=== PATIENT | female | born 1940 | race Caucasian/White ===

== ENCOUNTER 2016-10-30 16:28 | Inpatient (IN) | payer OTHER, MEDICARE ==
--- NOTE | 2016-10-30 18:42 | EKG REPORT ---
SEVERITY:- ABNORMAL ECG - SINUS RHYTHM PROBABLE LEFT ATRIAL ABNORMALITY PROBABLE ANTEROSEPTAL INFARCT, AGE INDETERM : Confirmed by: Dilma Jeronimo MD 30-Oct-2016 18:41:51
[2016-10-30] MEDS ORDERED: LEVOFLOXACIN 500 MG/D5W RTU 100 ML IV ONE (18:48)
[2016-10-30] MEDS ORDERED: IPRATROPIUM/ALBUTEROL 0.5-2.5 MG/3 ML AMPUL NEB ONE ×2 (18:48→21:56)
[2016-10-30 18:50] LABS: VENOUS BLOOD BASE EXCESS 5.4 mmol/L; VENOUS BLOOD HCO3 34.1 mmol/L (20-32); VENOUS BLOOD PH 7.3 (7.30-7.42)
[2016-10-30 18:54] LABS: ABSOLUTE EOSINOPHILS # (AUTO) 0.2 10^3/uL (0.0-0.6); ABSOLUTE LYMPHOCYTES (AUTO) 0.4 10^3/uL (0.5-4.7); ABSOLUTE MONOCYTES (AUTO) 0.1 10^3/uL (0.1-1.4); ABSOLUTE NEUT (AUTO) 5.2 10^3/uL (1.7-8.2); BASOPHILS % (AUTO) 0.7 % (0-2); EOSINOPHILS % (AUTO) 3.8 % (0-6); HEMATOCRIT 38.8 % (36.0-47.0); HEMOGLOBIN 12.1 g/dL (12.0-15.5); HGB HCT DIFFERENCE -2.5; LYMPHOCYTES % (AUTO) 7.5 % (13-45); MEAN CORPUSCULAR HEMOGLOBIN 26.9 pg (27.0-33.4); MEAN CORPUSCULAR HGB CONC 31.1 g/dL (32.0-36.0); MEAN CORPUSCULAR VOLUME 86 fl (80-97); MONOCYTES % (AUTO) 1.6 % (3-13); RED CELL DISTRIBUTION WIDTH 15.3 % (11.5-14.0); SEGMENTED NEUTROPHILS % (AUTO) 86.4 % (42-78)
[2016-10-30 18:59] LABS: PROTHROMBIN TIME 12.8 SEC (11.4-15.4)
[2016-10-30 19:02] LABS: VENOUS BLOOD PCO2 70.5 mmHg (35-63)
[2016-10-30 19:08] LABS: ANION GAP 9 (5-19); BLOOD UREA NITROGEN 13 mg/dL (7-20); CARBON DIOXIDE 33 mmol/L (22-30); CHLORIDE 106 mmol/L (98-107); CREATININE RESULT 0.78 mg/dL (0.52-1.25); GLUCOSE 113 mg/dL (75-110); POTASSIUM 4.2 mmol/L (3.6-5.0); SODIUM 147.7 mmol/L (137-145)
[2016-10-30 19:09] LABS: ALANINE AMINOTRANSFERASE 39 U/L (9-52); ALBUMIN 3.9 g/dL (3.5-5.0); ALKALINE PHOSPHATASE 185 U/L (38-126); ASPARTATE AMINO TRANSFERASE 24 U/L (14-36); BILIRUBIN,TOTAL 0.5 mg/dL (0.2-1.3); CREATINE KINASE 61 U/L (30-135); LIPASE 46.8 U/L (23-300); TOTAL PROTEIN 6.7 g/dL (6.3-8.2)
[2016-10-30 19:20] LABS: CREATINE KINASE MB 1.46 ng/mL (<4.55)
[2016-10-30 19:22] LABS: TROPONIN I < 0.012 ng/mL
[2016-10-30] MEDS ORDERED: METHYLPREDNISOLONE INJ 125 MG/2 ML SDV IV ONE (20:23)
--- NOTE | 2016-10-30 21:49 | ER Document Report ---
ED General - General Chief Complaint: Shortness Of Breath Stated Complaint: DIFFICULTY BREATHING TRAVEL OUTSIDE OF THE [place] IN LAST 30 DAYS: No - HPI Patient complains to provider of: shortness of breath cough Notes: Patient was seen today the local [place] clinic and sent by EMS for further evaluation shortness of breath cough. Patient states history COPD patient states that she's been short of breath the last week patient is on home O2 normally wears approximately 2-3 L. Patient denies any pain denies fever states he does have chills denies any night sweats. Patient states cough was productive however now not producing any sputum. Denies any recent travel. EMS reported hypoxia upon their arrival - Related Data Allergies/Adverse Reactions: lisinopril Allergy (Verified 10/03/16 16:06) omeprazole Allergy (Verified 10/03/16 16:06) Penicillins Allergy (Verified 10/03/16 16:06) rash Sulfa (Sulfonamide Antibiotics) Allergy (Verified 10/03/16 16:06) rash sulfamethoxazole [From Bactrim] Allergy (Verified 10/03/16 16:06) trimethoprim [From Bactrim] Allergy (Verified 10/03/16 16:06) Home Medications: Current Home Medications Albuterol Sulfate [Proair HFA] 2 puff IH Q6HP PRN 10/30/16 [History] Albuterol Sulfate [Ventolin 0.083% Neb 2.5 mg/3 mL Ampul] 2.5 mg NEB RTQ6 [History] Allopurinol [Zyloprim 300 mg Tablet] 300 mg PO DAILY 10/30/16 [History] Budesonide/Formoterol Fumarate [Symbicort HFA 160-4.5 mcg Inhaler 6 gm] 2 puff IH Q12 10/30/16 [History] Diclofenac Sodium [Voltaren] 4 gm TOP Q6 10/30/16 [History] Furosemide [Lasix 40 mg Tablet] 40 mg PO DAILY 10/30/16 [History] Guaifenesin [Expectorant] 400 mg PO Q8 10/30/16 [History] Ibuprofen [Motrin 800 mg Tablet] 800 mg PO Q8HP PRN 10/30/16 [History] Levothyroxine Sodium [Synthroid 0.15 mg Tablet] 0.15 mg PO DAILY 10/30/16 [ History] Lidocaine HCl [Xylocaine 5% Ointment 35.44 gm] 1 applic TOP BIDP PRN 10/30/16 [ History] Losartan Potassium [Cozaar 50 mg Tablet] 25 mg PO DAILY 10/30/16 [History] Paroxetine HCl [Paxil] 40 mg PO DAILY 10/30/16 [History] Potassium Chloride [Klor-Con 10 Meq Tablet.sa] 20 meq PO Q12 10/30/16 [History] Past Medical History - Social History Smoking Status: Unknown if Ever Smoked Family History: Reviewed & Not Pertinent - Past Medical History Cardiac Medical History: Reports: Hx Congestive Heart Failure Pulmonary Medical History: Reports: Hx Bronchitis, Hx COPD, Hx Pneumonia Malignancy Medical History: Reports: Hx Breast Cancer Past Surgical History: Reports: Hx Cholecystectomy, Hx Mastectomy - bilateral - Immunizations Immunizations up to date: No Hx Diphtheria, Pertussis, Tetanus Vaccination: No Review of Systems - Review of Systems Constitutional: No symptoms reported EENT: No symptoms reported Cardiovascular: No symptoms reported Respiratory: Cough, Short of breath, Wheezing Gastrointestinal: No symptoms reported Genitourinary: No symptoms reported Female Genitourinary: No symptoms reported Musculoskeletal: No symptoms reported Skin: No symptoms reported Hematologic/Lymphatic: No symptoms reported Neurological/Psychological: No symptoms reported -: Yes All other systems reviewed and negative Physical Exam - Vital signs Vitals: Resp 18 10/30/16 16:38 - General General appearance: Appears well, Alert - HEENT Head: Normocephalic, Atraumatic Eyes: Normal Pupils: PERRL - Respiratory Respiratory status: No respiratory distress Chest status: Nontender Breath sounds: Rhonchi, Wheezing Chest palpation: Normal - Cardiovascular Rhythm: Regular Heart sounds: Normal auscultation Murmur: No - Abdominal Inspection: Normal Distension: No distension Bowel sounds: Normal Tenderness: Nontender Organomegaly: No organomegaly - Back Back: Normal, Nontender - Extremities General upper extremity: Normal inspection, Nontender, Normal color, Normal ROM , Normal temperature General lower extremity: Normal inspection, Nontender, Normal color, Normal ROM , Normal temperature, Normal weight bearing. No: Manav's sign - Neurological Neuro grossly intact: Yes Cognition: Normal Orientation: AAOx4 [place]ack[place] Coma Scale Eye Opening: Spontaneous [place] Coma Scale Verbal: Oriented [place] Coma Scale Motor: Obeys Commands Zackary Coma Scale Total: 15 Speech: Normal Motor strength normal: LUE, RUE, LLE, RLE Sensory: Normal - Psychological Associated symptoms: Normal affect, Normal mood - Skin Skin Temperature: Warm Skin Moisture: Dry Skin Color: Normal Course - Re-evaluation Re-evalutation: 10/30/16 22:31 Patient's lab work shows elevated PCO2 there is no acidosis the patient does have bilateral pneumonia. Patient also has a coarse wheezing bilateral lung lyle. Patient was placed on her home O2 discussed with hospitalist will place the patient on BiPAP. Antibiotics given. Patient will be admitted for further evaluation. - Vital Signs Vital signs: Temp Pulse Resp BP Pulse Ox 98.0 F 90 18 133/49 H 95 10/30/16 16:53 10/30/16 16:53 10/30/16 22:00 10/30/16 16:53 10/30/16 22:00 - Laboratory Result Diagrams: 10/30/16 18:37 10/30/16 18:37 Laboratory results interpreted by me: 10/30/16 10/30/16 10/30/16 18:37 18:37 18:37 MCH 26.9 L MCHC 31.1 L RDW 15.3 H Seg Neutrophils % 86.4 H Lymphocytes % 7.5 L Monocytes % 1.6 L Absolute Lymphocytes 0.4 L VBG pCO2 70.5 H* VBG HCO3 34.1 H Sodium 147.7 H Carbon Dioxide 33 H Glucose 113 H Alkaline Phosphatase 185 H Critical Care Note - Critical Care Note Total time excluding time spent on procedures (mins): 35 Comments: Multiple evaluations for patient with abnormal vital signs/laboratory values. Requiring BiPAP Discharge - Discharge Clinical Impression: COPD exacerbation, Hypercarbia Bilateral pneumonia Qualifiers: Pneumonia type: due to unspecified organism Lung location: unspecified part of lung Qualified Code(s): J18.9 - Pneumonia, unspecified organism Condition: Fair Disposition: ADMITTED INPATIENT Admitting Provider: [facility] Unit Admitted: [facility]
[2016-10-31] MEDS ORDERED: GUAIFENESIN SYRP 200 MG/10 ML UDC PO PRN (00:39)
[2016-10-31] MEDS ORDERED: ALBUTEROL SULFATE 0.083% NEB 2.5 MG/3 ML AMPUL NEB PRN (00:39)
[2016-10-31] MEDS ORDERED: ACETAMINOPHEN 325 MG TABLET PO PRN (00:39)
[2016-10-31] MEDS ORDERED: DEXTROSE 50%-WATER 25 GM/50 ML DISP.SYRIN IV PRN ×2 (00:40)
[2016-10-31] MEDS ORDERED: INSULIN LISPRO 100 UNIT/ML 3 ML VIAL SUBCUT PRN (00:40)
[2016-10-31] MEDS ORDERED: DEXTROSE 40% GEL 15 GM TUBE PO PRN ×2 (00:40)
[2016-10-31] MEDS ORDERED: GLUCAGON,HUMAN RECOMB 1 MG INJ IM PRN (00:40)
[2016-10-31] MEDS ORDERED: 1/2 NORMAL SALINE 1,000 ML IV PRN (00:41)
[2016-10-31 00:42] LABS: VENOUS BLOOD BASE EXCESS 3.8 mmol/L; VENOUS BLOOD HCO3 30.3 mmol/L (20-32); VENOUS BLOOD PCO2 53.9 mmHg (35-63); VENOUS BLOOD PH 7.37 (7.30-7.42)
[2016-10-31] MEDS ORDERED: GENTAMICIN SULFATE 0 MG in DEXTROSE 5%-WATER 100 ML IV NR (00:45)
--- NOTE | 2016-10-31 01:21 | PDOC H&P ---
History of Present Illness Admission Date/PCP: 10/30/16 22:00 [place] Patient complains of: DIFFICULTY BREATHING History of Present Illness: DONALD FUNES is a 76 year old female 29/04 2-1/2-3 L oxygen per nasal cannula home O2 dependent COPD, also with underlying sleep apnea, noncompliant with treatment for same, who presents to the emergency room for evaluation of above complaint. Slightly productive cough, combined with gradually worsening shortness of breath over the past week. Particularly noticeable with much of any exertion. Admits to shaking chills, but denies pain or fever per se. Was in fairly significant respiratory distress upon arrival here. EMS reported hypoxia upon their arrival. Has tolerated treatment nicely so far, including application of BiPAP. Has never been intubated for respiratory difficulty. Has not been hospitalized in the last 3 months. Has been on antibiotics, she thinks in August or September, for respiratory problems. Does not remember the specific antibiotic. Patient has been discussed with emergency room physician who evaluated the patient. . Laboratory results are listed in [facility] and are reviewed. X-ray summary results are listed below, with full report(s) reviewed. . EKG reviewed. And compared to prior tracing from October 03 of last year. Social history/personal habits: . Lives with daughter. Retired. Never used tobacco; was a smoker. No alcohol use for the past 15-20 years. No illicit drug use. Ambulates with a cane and/or a walker. Allergies/adverse reactions are listed in [facility] and are reviewed. Uncertain if she can tolerate cephalosporins. Home medications are reviewed in [facility] and have been reconciled by pharmacy informatics specialist. Home medications initially autopopulated into [facility] may not accurately reflect patient's true medications, dosages, and/or frequencies. REVIEW OF SYSTEMS: Constitutional: See history and present illness. Eyes: Wears glasses. ENT: Occasional mild dysphagia, without aspiration. Partial hearing loss. Pulmonary: See history and present illness. Cardiovascular: No current complaints, including chest pain. Gastrointestinal: No current complaints, including nausea or vomiting. Skin: No current complaints, including rashes. Hematologic: Easy bruising. Neurologic: No current complaints, including numbness or tingling. Musculoskeletal: Joint pain from arthritis. Psychiatric: Mild Anxiety depression; denies suicidal or homicidal ideation. Endocrine: No current complaints, including polyuria. Genitourinary: No current complaints, including dysuria. PHYSICAL EXAMINATION: 5 feet 2-1/2 inches tall. 99.8 kg. BMI 39.6 kg/m. Blood pressure 126/59. Pulse 98 and regular. 96% saturation on BiPAP 15 over 5, 40%; nursing staff instructed to lower FiO2 to 35%. Respirations are 23 and unlabored. Obese otherwise well-developed though somewhat chronically ill-appearing female who appears perhaps a bit older than her stated age. Pleasant awake alert and cooperative. No obvious distress other than perhaps mildly anxious. Skin is warm and dry. No grossly obvious evidence of rash in areas of skin examined. No subcutaneous nodules palpated. ENT: Perhaps Mildly hard of hearing to normal conversation. Tongue midline on protrusion pink and slightly moist. Exam slightly limited by BiPAP mask with attaching straps. Eyes: No scleral icterus. Pupils equal and reactive to light at 4 mm. Gratis conjunctivae. Neck is supple and nontender to gentle active range of motion and palpation. Midline trachea. No palpable thyroid nodule mass enlargement or tenderness. Lymphatic: No palpable cervical or clavicular nodes. Neck and lymphatic exams limited by patient body habitus. Exam slightly limited by BiPAP mask with attaching straps. Psychiatric: Reasonable insight into acute and chronic medical issues. Oriented to time location and why here. Lungs: Auscultation reveals equal breath sounds bilaterally. No use of accessory respiratory muscles. Mild scattered brief expiratory wheezing bilaterally. Slightly coarse breath sounds bilaterally. Cardiovascular: Heart regular rate and rhythm, without gallop murmur or rub. No abdominal aortic bruits. Airway sounds from BiPAP limit evaluation for carotid bruits. No ankle or pedal edema. Faintly palpable dorsalis pedis pulses. Abdomen: soft, obese, nontender with positive bowel sounds. Unable to adequately evaluate abdomen for masses or organomegaly due to body habitus. Extremities: Feet are warm and dry. No calf tenderness to compression. No grossly obvious visual evidence of calf swelling. Gentle manipulation of lower extremities fails to reveal any obvious evidence of injury or instability to knees hips or ankles. Neurologic: Moves upper extremities grossly normally. Patellar reflexes absent. Absent Babinski. Light touch is intact at feet. Dorsiflexion and plantarflexion of feet 5 / 5 and symmetric. Past Medical History Cardiac Medical History: Reports: Congestive Heart Failure - Unknown if systolic and/or diastolic., Hypertension Denies: DVT, Myocardial Infarction, Hyperlipidema, Pulmonary Embolism Pulmonary Medical History: Reports: Bronchitis, Chronic Obstructive Pulmonary Disease (COPD), Pneumonia, Sleep Apnea - noncompliant w/CPAP EENT Medical History: Reports: Eyes - Wears glasses, Ears - Partial hearing loss Denies: Throat Neurological Medical History: Denies: Hemorrhagic CVA, Ischemic CVA, Seizures Endocrine Medical History: Reports: Hypothyroidism Denies: Diabetes Mellitus Type 1, Diabetes Mellitus Type 2, Hyperthyroidism Renal/ Medical History: Reports: None Malignancy Medical History: Reports: Breast Cancer, Skin Cancer GI Medical History: Reports: Gastroesophageal Reflux Disease - History of; no symptoms for some time now. Denies: Cirrhosis, Hepatitis, Peptic Ulcer Disease Musculoskeltal Medical History: Reports: Arthritis Psychiatric Medical History: Reports: Depression, General Anxiety Disorder Denies: Alcohol Dependency, Substance Abuse, Tobacco Dependency Hematology: Reports: Other - Easy bruising Infectious Medical History: Denies: Hepatitis B, Hepatitis C Past Surgical History Past Surgical History: Reports: Cholecystectomy, Mastectomy - bilateral for left breast cancer., Other - Skin cancer excision. Social History Information Source: Patient, Emergency Med Personnel, [facility] Records Lives with: Family Smoking Status: Never Smoker Frequency of Alcohol Use: None Drugs: None - Advance Directive Resuscitation Status: Full Code Surrogate healthcare decision maker:: Daughter Family History Family History: Reviewed & Not Pertinent Parental Family History Reviewed: Yes Children Family History Reviewed: Yes Sibling(s) Family History Reviewed.: NA Medication/Allergy Home Medications: Albuterol Sulfate [Proair HFA] 2 puff IH Q6HP PRN 10/30/16 Albuterol Sulfate [Ventolin 0.083% Neb 2.5 mg/3 mL Ampul] 2.5 mg NEB RTQ6 Allopurinol [Zyloprim 300 mg Tablet] 300 mg PO DAILY 10/30/16 Budesonide/Formoterol Fumarate [Symbicort HFA 160-4.5 mcg Inhaler 6 gm] 2 puff IH Q12 10/30/16 Diclofenac Sodium [Voltaren] 4 gm TOP Q6 10/30/16 Furosemide [Lasix 40 mg Tablet] 40 mg PO DAILY 10/30/16 Guaifenesin [Expectorant] 400 mg PO Q8 10/30/16 Ibuprofen [Motrin 800 mg Tablet] 800 mg PO Q8HP PRN 10/30/16 Levothyroxine Sodium [Synthroid 0.15 mg Tablet] 0.15 mg PO DAILY 10/30/16 Lidocaine HCl [Xylocaine 5% Ointment 35.44 gm] 1 applic TOP BIDP PRN 10/30/16 Losartan Potassium [Cozaar 50 mg Tablet] 25 mg PO DAILY 10/30/16 Paroxetine HCl [Paxil] 40 mg PO DAILY 10/30/16 Potassium Chloride [Klor-Con 10 Meq Tablet.sa] 20 meq PO Q12 10/30/16 Allergies/Adverse Reactions: lisinopril Allergy (Verified 10/03/16 16:06) omeprazole Allergy (Verified 10/03/16 16:06) Penicillins Allergy (Verified 10/03/16 16:06) rash Sulfa (Sulfonamide Antibiotics) Allergy (Verified 10/03/16 16:06) rash sulfamethoxazole [From Bactrim] Allergy (Verified 10/03/16 16:06) trimethoprim [From Bactrim] Allergy (Verified 10/03/16 16:06) Physical Exam Vital Signs: Temp Pulse Resp BP Pulse Ox 98.0 F 90 18 133/49 H 95 10/30/16 16:53 10/30/16 16:53 10/30/16 22:00 10/30/16 16:53 10/30/16 22:00 Results Impressions: Chest X-Ray 10/30/16 17:06 IMPRESSION: NEW SUBTLE AIRSPACE OPACITIES WITHIN THE RIGHT LOWER LOBE AND LEFT UPPER LOBE MAY REPRESENT DEVELOPING PNEUMONIA. RECOMMEND FOLLOWUP RADIOGRAPHS 4 TO 6 WEEKS TO ENSURE RESOLUTION. Assessment & Plan - Diagnosis (1) HTN (hypertension) Qualifiers: Hypertension type: essential hypertension Qualified Code(s): I10 - Essential (primary) hypertension Is this a current diagnosis for this admission?: YesPlan: Resume home medications as appropriate once these have been reviewed. (2) Hypothyroid Qualifiers: Hypothyroidism type: unspecified Qualified Code(s): E03.9 - Hypothyroidism, unspecified Is this a current diagnosis for this admission?: YesPlan: Resume home medications as appropriate once these have been reviewed. (3) Hypernatremia Is this a current diagnosis for this admission?: YesPlan: Half-normal saline, with follow-up chemistry. (4) Acute on chronic respiratory failure with hypoxia and hypercapnia Is this a current diagnosis for this admission?: YesPlan: Patient will be admitted under COPD exacerbation and pneumonia protocol. Incentive spirometry twice a day. Scheduled DuoNeb's. PRN albuterol nebs Solu-Medrol oral Pepcid for gastritis prophylaxis. Antibiotics will consist of aztreonam, Zithromax, and gentamicin. Pharmacy to assist with gentamicin dosing.. I strongly encouraged patient to notify staff should patient feel that respiratory status is worsening. Patient is a full code. I have strongly encouraged patient not to get out of bed without notifying staff , , to avoid a fall with injury. Knee high SCDs for DVT prophylaxis, along with subcutaneous Lovenox Impression and plans were discussed with patient, who concurs. Time spent in evaluation and management of patient: 68 minutes. (5) COPD exacerbation Is this a current diagnosis for this admission?: Yes (6) Bilateral pneumonia Qualifiers: Pneumonia type: due to unspecified organism Lung location: unspecified part of lung Qualified Code(s): J18.9 - Pneumonia, unspecified organism Is this a current diagnosis for this admission?: Yes - Inpatient Certification Based on my medical assessment, after consideration of the patient's comorbidities, presenting symptoms, or acuity I expect that the services needed warrant INPATIENT care.: Yes I certify that my determination is in accordance with my understanding of Medicare's requirements for reasonable and necessary INPATIENT services [42 CFR 412.3e].: Yes Medical Necessity: Need Close Monitoring Due to Risk of Patient Decompensation, Need For IV Fluids, Need For Continuous Telemetry Monitoring, Need for Nebulizer Therapy and Monitoring of Response, Need for IV Antibiotics, Risk of Complication if Not Cared For in Hospital, Risk of Diagnosis Which Will Require Inpatient Eval/Care/Monitoring Post Hospital Care: D/C or Transfer Summary
[2016-10-31] MEDS ORDERED: GENTAMICIN SULFATE INJ 80 MG/2 ML VIAL IV PRN (01:27)
[2016-10-31] MEDS ORDERED: AZTREONAM INJ 1 GM VIAL IV SCH (01:30)
[2016-10-31] MEDS ORDERED: AZTREONAM 2 GM in DEXTROSE 5%-WATER 50 ML IV SCH (02:00)
[2016-10-31] MEDS ORDERED: GENTAMICIN SULFATE 130 MG in DEXTROSE 5%-WATER 100 ML IV ONE (03:00)
[2016-10-31 03:43] LABS: ABSOLUTE LYMPHOCYTES (AUTO) 0.3 10^3/uL (0.5-4.7); ABSOLUTE NEUT (AUTO) 3.7 10^3/uL (1.7-8.2); BASOPHILS % (AUTO) 0.8 % (0-2); EOSINOPHILS % (AUTO) 0.1 % (0-6); LYMPHOCYTES % (AUTO) 8.3 % (13-45); MEAN CORPUSCULAR HEMOGLOBIN 26.9 pg (27.0-33.4); MEAN CORPUSCULAR HGB CONC 31.5 g/dL (32.0-36.0); MEAN CORPUSCULAR VOLUME 86 fl (80-97); MONOCYTES % (AUTO) 0.7 % (3-13); RED BLOOD COUNT 4.44 10^6/uL (3.72-5.28); RED CELL DISTRIBUTION WIDTH 15.5 % (11.5-14.0); SEGMENTED NEUTROPHILS % (AUTO) 90.1 % (42-78); WHITE BLOOD COUNT 4.2 10^3/uL (4.0-10.5)
[2016-10-31 03:51] LABS: APPEARANCE,URINE CLOUDY; BILIRUBIN,URINE NEGATIVE (NEGATIVE); GLUCOSE, URINE NEGATIVE (NEGATIVE); KETONES,URINE NEGATIVE (NEGATIVE); LEUKOCYTE ESTERASE,URINE LARGE (NEGATIVE); NITRITE,URINE POSITIVE (NEGATIVE); PROTEIN,URINE 30 mg/dL (NEGATIVE); UROBILINOGEN,URINE NEGATIVE mg/dL (<2.0)
[2016-10-31 03:53] LABS: ALANINE AMINOTRANSFERASE 34 U/L (9-52); ALBUMIN 3.8 g/dL (3.5-5.0); ALKALINE PHOSPHATASE 167 U/L (38-126); ANION GAP 11 (5-19); ASPARTATE AMINO TRANSFERASE 24 U/L (14-36); BILIRUBIN,TOTAL 0.5 mg/dL (0.2-1.3); BLOOD UREA NITROGEN 15 mg/dL (7-20); CALCIUM 9.8 mg/dL (8.4-10.2); CARBON DIOXIDE 28 mmol/L (22-30); CHLORIDE 108 mmol/L (98-107); CREATININE RESULT 0.67 mg/dL (0.52-1.25); GLUCOSE 153 mg/dL (75-110); POTASSIUM 4.6 mmol/L (3.6-5.0); SODIUM 146.6 mmol/L (137-145); TOTAL PROTEIN 6.4 g/dL (6.3-8.2)
[2016-10-31] MEDS ORDERED: METHYLPREDNISOLONE INJ 125 MG/2 ML SDV IV SCH (06:00)
[2016-10-31 07:13] LABS: VENOUS BLOOD BASE EXCESS 3.2 mmol/L; VENOUS BLOOD HCO3 29.5 mmol/L (20-32); VENOUS BLOOD PCO2 52.5 mmHg (35-63); VENOUS BLOOD PH 7.37 (7.30-7.42)
[2016-10-31] MEDS: IPRATROPIUM/ALBUTEROL 0.5-2.5 MG/3 ML AMPUL NEB SCH ×2 (07:58→14:21)
[2016-10-31] MEDS: ENOXAPARIN SODIUM INJ 40 MG/0.4 ML DISP.SYRIN SUBCUT SCH (08:08)
[2016-10-31] MEDS: FAMOTIDINE 20 MG TABLET PO SCH ×2 (09:11→21:28)
[2016-10-31] MEDS: BUDESONIDE/FORMOTEROL 160-4.5 MCG 60 PUFF/6 GM MDI IH SCH ×2 (09:11→21:28)
[2016-10-31] MEDS: POTASSIUM CHLORIDE 10 MEQ TABLET.SA PO SCH (09:12)
[2016-10-31] MEDS: LEVOTHYROXINE SODIUM 0.15 MG TABLET PO SCH (09:12)
[2016-10-31] MEDS: FUROSEMIDE 40 MG TABLET PO SCH (09:14)
[2016-10-31] MEDS: LOSARTAN POTASSIUM 25 MG TABLET PO SCH (09:15)
[2016-10-31] MEDS: AZITHROMYCIN 500 MG in DEXTROSE 5%-WATER 250 ML IV SCH (09:28)
[2016-10-31] MEDS ORDERED: GUAIFENESIN 600 MG TABLET.SA PO ONE (11:17)
[2016-10-31] MEDS ORDERED: BENZONATATE 100 MG CAPSULE PO PRN (11:19)
[2016-10-31] MEDS ORDERED: AZTREONAM 2 GM in DEXTROSE 5%-WATER 100 ML IV ONE (11:30)
[2016-10-31] MEDS ORDERED: FLUTICASONE NASAL SPRAY 50 MCG/SPRY 120 SPRAY/16 GM NASL ONE (13:00)
[2016-10-31] MEDS ORDERED: ALBUTEROL SULFATE 0.042% NEB (1.25 MG/3 ML) AMPUL NEB PRN (14:54)
--- NOTE | 2016-10-31 15:10 | PDOC PROGRESS REPORT ---
Subjective Progress Note for:: 10/31/16 Subjective:: The patient was seen earlier today on rounds. The patient states that her symptoms have improved significantly since admission. The patient states that her shortness of breath overall has improved. The patient denies any nausea, vomiting, diarrhea, dizziness, chest pain, heart palpitations, fevers, or chills. The patient has remained afebrile. Blood pressures have been in a good range. When prompted the patient voices no other concerns at this time. Review of systems: The rest of the review of systems is negative. Physical Exam Vital Signs: Temp Pulse Resp BP Pulse Ox 97.4 F 101 H 18 122/52 L 93 10/31/16 11:22 10/31/16 14:21 10/31/16 14:21 10/31/16 11:22 10/31/16 14:21 Intake & Output 10/29/16 10/30/16 10/31/16 23:59 23:59 23:59 Intake Total 250 Balance 250 Weight 105.6 kg General appearance: PRESENT: no acute distress, cooperative, well-developed, well-nourished Head exam: PRESENT: atraumatic, normocephalic Eye exam: PRESENT: conjunctiva pink, EOMI, PERRLA. ABSENT: scleral icterus Ear exam: PRESENT: normal external ear exam Mouth exam: PRESENT: moist, tongue midline Neck exam: ABSENT: carotid bruit, JVD, lymphadenopathy, thyromegaly Respiratory exam: PRESENT: symmetrical, unlabored, wheezes. ABSENT: rales, rhonchi, tachypnea Cardiovascular exam: PRESENT: RRR. ABSENT: diastolic murmur, rubs, systolic murmur Pulses: PRESENT: normal dorsalis pedis pul Vascular exam: PRESENT: normal capillary refill GI/Abdominal exam: PRESENT: normal bowel sounds, soft. ABSENT: distended, guarding, mass, organolmegaly, rebound, tenderness Rectal exam: PRESENT: deferred Extremities exam: PRESENT: full ROM. ABSENT: calf tenderness, clubbing, pedal edema Neurological exam: PRESENT: alert, awake, oriented to person, oriented to place , oriented to time, oriented to situation, CN II-XII grossly intact. ABSENT: motor sensory deficit Psychiatric exam: PRESENT: appropriate affect, normal mood. ABSENT: homicidal ideation, suicidal ideation Skin exam: PRESENT: dry, intact, warm. ABSENT: cyanosis, rash Results Laboratory Results: 10/31/16 03:30 10/31/16 03:30 10/31/16 10/31/16 10/31/16 03:15 03:30 03:30 WBC 4.2 RBC 4.44 Hgb 12.0 Hct 38.0 MCV 86 MCH 26.9 L MCHC 31.5 L RDW 15.5 H Plt Count 194 Seg Neutrophils % 90.1 H Lymphocytes % 8.3 L Monocytes % 0.7 L Eosinophils % 0.1 Basophils % 0.8 Absolute Neutrophils 3.7 Absolute Lymphocytes 0.3 L Absolute Monocytes 0.0 L Absolute Eosinophils 0.0 Absolute Basophils 0.0 VBG pH VBG pCO2 VBG HCO3 VBG Base Excess Sodium 146.6 H Potassium 4.6 Chloride 108 H Carbon Dioxide 28 Anion Gap 11 BUN 15 Creatinine 0.67 Est GFR ( Amer) > 60 Est GFR (Non-Af Amer) > 60 Glucose 153 H Calcium 9.8 Total Bilirubin 0.5 AST 24 ALT 34 Alkaline Phosphatase 167 H Total Protein 6.4 Albumin 3.8 Free T4 Urine Color YELLOW Urine Appearance CLOUDY Urine pH 5.0 Ur Specific [place] 1.020 Urine Protein 30 H Urine Glucose (UA) NEGATIVE Urine Ketones NEGATIVE Urine Blood NEGATIVE Urine Nitrite POSITIVE H Ur Leukocyte Esterase LARGE H Urine WBC (Auto) 96 Urine RBC (Auto) 6 10/31/16 10/31/16 03:30 07:00 WBC RBC Hgb Hct MCV MCH MCHC RDW Plt Count Seg Neutrophils % Lymphocytes % Monocytes % Eosinophils % Basophils % Absolute Neutrophils Absolute Lymphocytes Absolute Monocytes Absolute Eosinophils Absolute Basophils VBG pH 7.37 VBG pCO2 52.5 VBG HCO3 29.5 VBG Base Excess 3.2 Sodium Potassium Chloride Carbon Dioxide Anion Gap BUN Creatinine Est GFR ( Amer) Est GFR (Non-Af Amer) Glucose Calcium Total Bilirubin AST ALT Alkaline Phosphatase Total Protein Albumin Free T4 1.96 Urine Color Urine Appearance Urine pH Ur Specific [place] Urine Protein Urine Glucose (UA) Urine Ketones Urine Blood Urine Nitrite Ur Leukocyte Esterase Urine WBC (Auto) Urine RBC (Auto) 10/31/16 03:30 Troponin I < 0.012 Impressions: Chest X-Ray 10/30/16 17:06 IMPRESSION: NEW SUBTLE AIRSPACE OPACITIES WITHIN THE RIGHT LOWER LOBE AND LEFT UPPER LOBE MAY REPRESENT DEVELOPING PNEUMONIA. RECOMMEND FOLLOWUP RADIOGRAPHS 4 TO 6 WEEKS TO ENSURE RESOLUTION. Assessment & Plan - Diagnosis (1) Bilateral pneumonia Qualifiers: Pneumonia type: due to unspecified organism Lung location: unspecified part of lung Qualified Code(s): J18.9 - Pneumonia, unspecified organism Is this a current diagnosis for this admission?: YesPlan: Will obtain swallow study since the patient states that she has noticed coughing with meals. Will continue current antibiotic coverage given the patient has responded. (2) Acute on chronic respiratory failure with hypoxia and hypercapnia Is this a current diagnosis for this admission?: YesPlan: Will continue BiPAP as needed (3) COPD exacerbation Is this a current diagnosis for this admission?: Yes (5) Hypernatremia Is this a current diagnosis for this admission?: YesPlan: Resolved with hydration (6) UTI (urinary tract infection) Qualifiers: Urinary tract infection type: acute cystitis Hematuria presence: with hematuria Qualified Code(s): N30.01 - Acute cystitis with hematuria Is this a current diagnosis for this admission?: YesPlan: Will continue current antibiotic coverage and await culture and sensitivity. (7) HTN (hypertension) Qualifiers: Hypertension type: essential hypertension Qualified Code(s): I10 - Essential (primary) hypertension Is this a current diagnosis for this admission?: Yes (8) Hypothyroid Qualifiers: Hypothyroidism type: unspecified Qualified Code(s): E03.9 - Hypothyroidism, unspecified Is this a current diagnosis for this admission?: Yes - Time Time Spent with patient: on this visit including assessment, plan, physical examination, family meeting, and specialty collaboration, and patient education is 35 minutes. Time Spent with patient: 35 or more minutes Medications reviewed and adjusted accordingly: Yes Anticipated discharge: Home Within: within 48 hours Disposition: The patient is a full code. Pending patient's symptomatology and diagnostic findings will reevaluate in the a.m.
[2016-10-31] MEDS: ALBUTEROL SULFATE 0.083% NEB 2.5 MG/3 ML AMPUL NEB SCH (16:41)
[2016-10-31] MEDS: PREDNISONE 20 MG TABLET PO SCH (17:23)
[2016-10-31] MEDS: AZTREONAM 2 GM in DEXTROSE 5%-WATER 100 ML IV SCH (17:53)
[2016-10-31] MEDS: GUAIFENESIN 600 MG TABLET.SA PO SCH (21:28)
[2016-10-31] MEDS: MONTELUKAST SODIUM 10 MG TABLET PO SCH (21:28)
[2016-10-31] MEDS: FLUTICASONE NASAL SPRAY 50 MCG/SPRY 120 SPRAY/16 GM NASL SCH (21:32)
[2016-11-01] MEDS: AZTREONAM 2 GM in DEXTROSE 5%-WATER 100 ML IV SCH ×3 (02:00→17:04)
[2016-11-01] MEDS ORDERED: AZTREONAM INJ 1 GM VIAL ONE (03:16)
[2016-11-01] MEDS: ALBUTEROL SULFATE 0.083% NEB 2.5 MG/3 ML AMPUL NEB SCH ×2 (07:32→15:54)
[2016-11-01] MEDS: ENOXAPARIN SODIUM INJ 40 MG/0.4 ML DISP.SYRIN SUBCUT SCH (07:51)
[2016-11-01 09:17] LABS: VENOUS BLOOD BASE EXCESS 3.1 mmol/L; VENOUS BLOOD HCO3 29.3 mmol/L (20-32); VENOUS BLOOD PCO2 51.8 mmHg (35-63); VENOUS BLOOD PH 7.37 (7.30-7.42)
[2016-11-01] MEDS: FLUTICASONE NASAL SPRAY 50 MCG/SPRY 120 SPRAY/16 GM NASL SCH ×2 (09:27→21:42)
[2016-11-01] MEDS: BUDESONIDE/FORMOTEROL 160-4.5 MCG 60 PUFF/6 GM MDI IH SCH ×2 (09:27→21:42)
[2016-11-01] MEDS: PAROXETINE HCL 20 MG TABLET PO SCH (09:31)
[2016-11-01] MEDS: PREDNISONE 20 MG TABLET PO SCH ×2 (09:31→17:05)
[2016-11-01] MEDS: LEVOTHYROXINE SODIUM 0.15 MG TABLET PO SCH (09:31)
[2016-11-01] MEDS: POTASSIUM CHLORIDE 10 MEQ TABLET.SA PO SCH (09:31)
[2016-11-01] MEDS: GUAIFENESIN 600 MG TABLET.SA PO SCH ×2 (09:32→21:41)
[2016-11-01] MEDS: AZITHROMYCIN 500 MG in DEXTROSE 5%-WATER 250 ML IV SCH (09:32)
[2016-11-01] MEDS: FAMOTIDINE 20 MG TABLET PO SCH ×2 (09:32→21:41)
[2016-11-01] MEDS: FUROSEMIDE 40 MG TABLET PO SCH (09:34)
[2016-11-01] MEDS: LOSARTAN POTASSIUM 25 MG TABLET PO SCH (09:34)
--- NOTE | 2016-11-01 15:49 | PDOC PROGRESS REPORT ---
Subjective Progress Note for:: 11/01/16 Subjective:: The patient was seen earlier today on rounds. The patient was groggy this morning as I did awaken her. Blood gas was drawn to ensure the patient was not hypercapnic which was unremarkable. The patient stated that she just did not sleep well last night and still groggy. She admits to strong cough does not produce much sputum. The patient denies any nausea, vomiting, diarrhea, dizziness, chest pain, heart palpitations, fevers, or chills. The patient has remained afebrile. Blood pressures have been in a good range. When prompted the patient voices no other concerns at this time. Review of systems: The rest of the review of systems is negative. Physical Exam Vital Signs: Temp Pulse Resp BP Pulse Ox 97.5 F 101 H 19 117/51 L 97 11/01/16 15:23 11/01/16 15:23 11/01/16 15:23 11/01/16 15:23 11/01/16 15:23 Intake & Output 10/30/16 10/31/16 11/01/16 23:59 23:59 23:59 Intake Total 2123 1247 Output Total 700 4001 Balance 1423 -2754 Weight 105.6 kg 104 kg General appearance: PRESENT: no acute distress, cooperative, well-developed, well-nourished Head exam: PRESENT: atraumatic, normocephalic Eye exam: PRESENT: conjunctiva pink, EOMI, PERRLA. ABSENT: scleral icterus Ear exam: PRESENT: normal external ear exam Mouth exam: PRESENT: moist, tongue midline Neck exam: ABSENT: carotid bruit, JVD, lymphadenopathy, thyromegaly Respiratory exam: PRESENT: symmetrical, unlabored, wheezes. ABSENT: rales, rhonchi, tachypnea Cardiovascular exam: PRESENT: RRR. ABSENT: diastolic murmur, rubs, systolic murmur Pulses: PRESENT: normal dorsalis pedis pul Vascular exam: PRESENT: normal capillary refill GI/Abdominal exam: PRESENT: normal bowel sounds, soft. ABSENT: distended, guarding, mass, organolmegaly, rebound, tenderness Rectal exam: PRESENT: deferred Extremities exam: PRESENT: full ROM. ABSENT: calf tenderness, clubbing, pedal edema Neurological exam: PRESENT: alert, awake, oriented to person, oriented to place , oriented to time, oriented to situation, CN II-XII grossly intact. ABSENT: motor sensory deficit Psychiatric exam: PRESENT: appropriate affect, normal mood. ABSENT: homicidal ideation, suicidal ideation Skin exam: PRESENT: dry, intact, warm. ABSENT: cyanosis, rash Results Laboratory Results: 10/31/16 03:30 10/31/16 03:30 11/01/16 08:55 VBG pH 7.37 VBG pCO2 51.8 VBG HCO3 29.3 VBG Base Excess 3.1 10/31/16 03:30 Troponin I < 0.012 Impressions: Chest X-Ray 10/30/16 17:06 IMPRESSION: NEW SUBTLE AIRSPACE OPACITIES WITHIN THE RIGHT LOWER LOBE AND LEFT UPPER LOBE MAY REPRESENT DEVELOPING PNEUMONIA. RECOMMEND FOLLOWUP RADIOGRAPHS 4 TO 6 WEEKS TO ENSURE RESOLUTION. Assessment & Plan - Diagnosis (1) Bilateral pneumonia Qualifiers: Pneumonia type: due to unspecified organism Lung location: unspecified part of lung Qualified Code(s): J18.9 - Pneumonia, unspecified organism Is this a current diagnosis for this admission?: YesPlan: The patient's bedside swallow study was unremarkable per speech therapy. Will continue antibiotic coverage. (2) Acute on chronic respiratory failure with hypoxia and hypercapnia Is this a current diagnosis for this admission?: YesPlan: Will continue BiPAP as needed (3) COPD exacerbation Is this a current diagnosis for this admission?: Yes (4) Morbid obesity with BMI of 40.0-44.9, adult Is this a current diagnosis for this admission?: Yes (5) Hypernatremia Is this a current diagnosis for this admission?: YesPlan: Resolved with hydration (6) UTI (urinary tract infection) Qualifiers: Urinary tract infection type: acute cystitis Hematuria presence: with hematuria Qualified Code(s): N30.01 - Acute cystitis with hematuria Is this a current diagnosis for this admission?: YesPlan: Will continue current antibiotic coverage and await culture and sensitivity. Gram-negative. (7) HTN (hypertension) Qualifiers: Hypertension type: essential hypertension Qualified Code(s): I10 - Essential (primary) hypertension Is this a current diagnosis for this admission?: Yes (8) Hypothyroid Qualifiers: Hypothyroidism type: unspecified Qualified Code(s): E03.9 - Hypothyroidism, unspecified Is this a current diagnosis for this admission?: Yes - Time Time Spent with patient: on this visit including assessment, plan, physical examination, and patient education is 25 minutes. Time Spent with patient: 25-34 minutes Medications reviewed and adjusted accordingly: Yes Anticipated discharge: Home Within: within 48 hours Disposition: The patient is a full code. Pending patient's symptomatology and diagnostic findings will reevaluate in the a.m.
[2016-11-01] MEDS: MONTELUKAST SODIUM 10 MG TABLET PO SCH (21:43)
[2016-11-02] MEDS ORDERED: AZTREONAM INJ 1 GM VIAL ONE (01:22)
[2016-11-02] MEDS: AZTREONAM 2 GM in DEXTROSE 5%-WATER 100 ML IV SCH ×2 (01:40→09:36)
[2016-11-02] MEDS: ENOXAPARIN SODIUM INJ 40 MG/0.4 ML DISP.SYRIN SUBCUT SCH (08:00)
[2016-11-02] MEDS: ALBUTEROL SULFATE 0.083% NEB 2.5 MG/3 ML AMPUL NEB SCH (08:13)
[2016-11-02 09:30] VITALS: BP 105/86
[2016-11-02] MEDS: FAMOTIDINE 20 MG TABLET PO SCH (09:31)
[2016-11-02] MEDS: GUAIFENESIN 600 MG TABLET.SA PO SCH (09:32)
[2016-11-02] MEDS: PREDNISONE 20 MG TABLET PO SCH (09:32)
[2016-11-02] MEDS: LEVOTHYROXINE SODIUM 0.15 MG TABLET PO SCH (09:32)
[2016-11-02] MEDS: FUROSEMIDE 40 MG TABLET PO SCH (09:32)
[2016-11-02] MEDS: POTASSIUM CHLORIDE 10 MEQ TABLET.SA PO SCH (09:32)
[2016-11-02] MEDS: PAROXETINE HCL 20 MG TABLET PO SCH (09:33)
[2016-11-02] MEDS: LOSARTAN POTASSIUM 25 MG TABLET PO SCH (09:33)
[2016-11-02] MEDS: BUDESONIDE/FORMOTEROL 160-4.5 MCG 60 PUFF/6 GM MDI IH SCH (09:35)
[2016-11-02] MEDS: FLUTICASONE NASAL SPRAY 50 MCG/SPRY 120 SPRAY/16 GM NASL SCH (09:36)
[2016-11-02] MEDS: AZITHROMYCIN 500 MG in DEXTROSE 5%-WATER 250 ML IV SCH (09:36)
--- NOTE | 2016-11-02 17:02 | PDOC DISCHARGE SUMMARY ---
General - Admit/Disc Date/PCP Admission Date/Primary Care Provider: 10/31/16 00:39 [facility] Discharge Date: 11/02/16 - Discharge Diagnosis (1) Bilateral pneumonia Is this a current diagnosis for this admission?: Yes (2) Acute on chronic respiratory failure with hypoxia and hypercapnia Is this a current diagnosis for this admission?: Yes (3) COPD exacerbation Is this a current diagnosis for this admission?: Yes (4) Morbid obesity with BMI of 40.0-44.9, adult Is this a current diagnosis for this admission?: Yes (5) Hypernatremia Is this a current diagnosis for this admission?: Yes (6) UTI (urinary tract infection) Is this a current diagnosis for this admission?: Yes (7) HTN (hypertension) Is this a current diagnosis for this admission?: Yes (8) Hypothyroid Is this a current diagnosis for this admission?: Yes - Additional Information Resuscitation Status: Full Code Discharge Diet: As Tolerated Discharge Activity: Activity As Tolerated, Slowly Increase Activity, Weigh Daily Home Medications: Albuterol Sulfate [Proair HFA] 2 puff IH Q6HP PRN 10/30/16 Allopurinol [Zyloprim 300 mg Tablet] 300 mg PO DAILY 10/30/16 Budesonide/Formoterol Fumarate [Symbicort HFA 160-4.5 mcg Inhaler 6 gm] 2 puff IH Q12 10/30/16 Diclofenac Sodium [Voltaren] 4 gm TOP Q6 10/30/16 Furosemide [Lasix 40 mg Tablet] 40 mg PO DAILY 10/30/16 Ibuprofen [Motrin 800 mg Tablet] 800 mg PO Q8HP PRN 10/30/16 Levothyroxine Sodium [Synthroid 0.15 mg Tablet] 0.15 mg PO DAILY 10/30/16 Lidocaine HCl [Xylocaine 5% Ointment 35.44 gm] 1 applic TOP BIDP PRN 10/30/16 Losartan Potassium [Cozaar 50 mg Tablet] 25 mg PO DAILY 10/30/16 Paroxetine HCl [Paxil] 40 mg PO DAILY 10/30/16 Potassium Chloride [Klor-Con 10 Meq Tablet.sa] 20 meq PO Q12 10/30/16 Albuterol Sulfate [Ventolin 0.083% Neb 2.5 mg/3 mL Ampul] 2.5 mg NEB RTQ6 PRN # 0 11/02/16 Doxycycline Hyclate [Morgidox] 100 mg PO BID #14 capsule 11/02/16 Fluticasone Propionate [Flonase Nasal [place] 50 Mcg/[place] 16 gm] 2 spray NASL Q12 spray.pump 11/02/16 Guaifenesin [Expectorant] 400 mg PO Q8 PRN #0 11/02/16 Prednisone [Deltasone 10 mg Tablet] 10 mg PO ASDIR PRN #21 tablet 11/02/16 History of Present Illness Patient complains of: Difficulty breathing History of Present Illness: DONALD FUNES is a 76 year old female 29/04 2-1/2-3 L oxygen per nasal cannula home O2 dependent COPD, also with underlying sleep apnea, noncompliant with treatment for same, who presents to the emergency room for evaluation of difficulty breathing. Slightly productive cough, combined with gradually worsening shortness of breath over the past week. Particularly noticeable with much of any exertion. Admitted to shaking chills, but denies pain or fever per se. Was in fairly significant respiratory distress upon arrival here. EMS reported hypoxia upon their arrival. Has tolerated treatment including application of BiPAP. Has never been intubated for respiratory difficulty. Has not been hospitalized in the last 3 months. Has been on antibiotics, she thinks in August or September, for respiratory problems. Does not remember the specific antibiotic. The patient was referred to the hospitalist for admission and management. Hospital Course Hospital Course: The patient was placed on antibiotic(s), nebulizers, expectorants, supplemental O2, incentive spirometry and flutter valve. The patient is noted to have a number of antibiotic allergies. Sputum culture was unable to be obtained. The patient was weaned from O2 down to home settings and symptoms overall improved. Patient able to fully complete sentences and ambulate. Urine analysis and culture was obtained. The patient had findings suggestive of a urinary tract infection. Patient's urine culture revealed Escherichia coli which was sensitive to doxycycline and the patient received antibiotic coverage. The patient's symptoms completely resolved. Physical Exam Vital Signs: Temp Pulse Resp BP Pulse Ox 98.1 F 80 16 105/86 H 94 11/02/16 10:22 11/02/16 10:22 11/02/16 10:22 11/02/16 10:22 11/02/16 10:22 Intake & Output 10/31/16 11/01/1617 23:59 23:59 23:59 Intake Total 6152 2288 938 Output Total 566 5121 4264 Balance 5809 -9370 -812 Weight 105.6 kg 104 kg General appearance: PRESENT: no acute distress, cooperative, well-developed, well-nourished Head exam: PRESENT: atraumatic, normocephalic Eye exam: PRESENT: conjunctiva pink, EOMI, PERRLA. ABSENT: scleral icterus Ear exam: PRESENT: normal external ear exam Mouth exam: PRESENT: moist, tongue midline Neck exam: ABSENT: carotid bruit, JVD, lymphadenopathy, thyromegaly Respiratory exam: PRESENT: symmetrical, unlabored. ABSENT: rales, rhonchi, tachypnea, wheezes Cardiovascular exam: PRESENT: RRR. ABSENT: diastolic murmur, rubs, systolic murmur Pulses: PRESENT: normal dorsalis pedis pul Vascular exam: PRESENT: normal capillary refill GI/Abdominal exam: PRESENT: normal bowel sounds, soft. ABSENT: distended, guarding, mass, organolmegaly, rebound, tenderness Rectal exam: PRESENT: deferred Extremities exam: PRESENT: full ROM. ABSENT: calf tenderness, clubbing, pedal edema Neurological exam: PRESENT: alert, awake, oriented to person, oriented to place , oriented to time, oriented to situation, CN II-XII grossly intact. ABSENT: motor sensory deficit Psychiatric exam: PRESENT: appropriate affect, normal mood. ABSENT: homicidal ideation, suicidal ideation Skin exam: PRESENT: dry, intact, warm. ABSENT: cyanosis, rash Results Laboratory Results: Labs- Last Values WBC 4.2 10^3/uL (4.0-10.5) 10/31/16 03:30 RBC 4.44 10^6/uL (3.72-5.28) 10/31/16 03:30 Hgb 12.0 g/dL (12.0-15.5) 10/31/16 03:30 Hct 38.0 % (36.0-47.0) 10/31/16 03:30 MCV 86 fl (80-97) 10/31/16 03:30 MCH 26.9 pg (27.0-33.4) L 10/31/16 03:30 MCHC 31.5 g/dL (32.0-36.0) L 10/31/16 03:30 RDW 15.5 % (11.5-14.0) H 10/31/16 03:30 Plt Count 194 10^3/uL (150-450) 10/31/16 03:30 Seg Neutrophils % 90.1 % (42-78) H 10/31/16 03:30 Lymphocytes % 8.3 % (13-45) L 10/31/16 03:30 Monocytes % 0.7 % (3-13) L 10/31/16 03:30 Eosinophils % 0.1 % (0-6) 10/31/16 03:30 Basophils % 0.8 % (0-2) 10/31/16 03:30 Absolute Neutrophils 3.7 10^3/uL (1.7-8.2) 10/31/16 03:30 Absolute Lymphocytes 0.3 10^3/uL (0.5-4.7) L 10/31/16 03:30 Absolute Monocytes 0.0 10^3/uL (0.1-1.4) L 10/31/16 03:30 Absolute Eosinophils 0.0 10^3/uL (0.0-0.6) 10/31/16 03:30 Absolute Basophils 0.0 10^3/uL (0.0-0.2) 10/31/16 03:30 PT 12.8 SEC (11.4-15.4) 10/30/16 18:37 INR 0.94 10/30/16 18:37 VBG pH 7.37 (7.30-7.42) 11/01/16 08:55 VBG pCO2 51.8 mmHg (35-63) 11/01/16 08:55 VBG HCO3 29.3 mmol/L (20-32) 11/01/16 08:55 VBG Base Excess 3.1 mmol/L 11/01/16 08:55 Sodium 146.6 mmol/L (137-145) H 10/31/16 03:30 Potassium 4.6 mmol/L (3.6-5.0) 10/31/16 03:30 Chloride 108 mmol/L (98-107) H 10/31/16 03:30 Carbon Dioxide 28 mmol/L (22-30) 10/31/16 03:30 Anion Gap 11 (5-19) 10/31/16 03:30 BUN 15 mg/dL (7-20) 10/31/16 03:30 Creatinine 0.67 mg/dL (0.52-1.25) 10/31/16 03:30 Est GFR ( Amer) > 60 (>60) 10/31/16 03:30 Est GFR (Non-Af Amer) > 60 (>60) 10/31/16 03:30 Glucose 153 mg/dL (75-110) H 10/31/16 03:30 POC Glucose 158 mg/dL (70-110) H 10/31/16 21:14 Calcium 9.8 mg/dL (8.4-10.2) 10/31/16 03:30 Magnesium 2.0 mg/dL (1.6-2.3) 10/30/16 18:37 Total Bilirubin 0.5 mg/dL (0.2-1.3) 10/31/16 03:30 Direct Bilirubin 0.0 mg/dL (0.0-0.3) 10/31/16 03:30 AST 24 U/L (14-36) 10/31/16 03:30 ALT 34 U/L (9-52) 10/31/16 03:30 Alkaline Phosphatase 167 U/L (38-126) H 10/31/16 03:30 Creatine Kinase 61 U/L (30-135) 10/30/16 18:37 CK-MB (CK-2) 1.46 ng/mL (<4.55) 10/30/16 18:37 Troponin I < 0.012 ng/mL 10/31/16 03:30 Total Protein 6.4 g/dL (6.3-8.2) 10/31/16 03:30 Albumin 3.8 g/dL (3.5-5.0) 10/31/16 03:30 Lipase 46.8 U/L (23-300) 10/30/16 18:37 TSH < 0.02 uIU/mL (0.47-4.68) L 10/30/16 18:37 Free T4 1.96 ng/dL (0.78-2.19) 10/31/16 03:30 Urine Color YELLOW 10/31/16 03:15 Urine Appearance CLOUDY 10/31/16 03:15 Urine pH 5.0 (5.0-9.0) 10/31/16 03:15 Ur Specific [place] 1.020 10/31/16 03:15 Urine Protein 30 mg/dL (NEGATIVE) H 10/31/16 03:15 Urine Glucose (UA) NEGATIVE mg/dL (NEGATIVE) 10/31/16 03:15 Urine Ketones NEGATIVE mg/dL (NEGATIVE) 10/31/16 03:15 Urine Blood NEGATIVE (NEGATIVE) 10/31/16 03:15 Urine Nitrite POSITIVE (NEGATIVE) H 10/31/16 03:15 Urine Bilirubin NEGATIVE (NEGATIVE) 10/31/16 03:15 Urine Urobilinogen NEGATIVE mg/dL (<2.0) 10/31/16 03:15 Ur Leukocyte Esterase LARGE (NEGATIVE) H 10/31/16 03:15 Urine WBC (Auto) 96 /HPF 10/31/16 03:15 Urine RBC (Auto) 6 /HPF 10/31/16 03:15 Urine Bacteria (Auto) 3+ /HPF 10/31/16 03:15 Squamous Epi Cells Auto 39 /HPF 10/31/16 03:15 Urine Mucus (Auto) FEW /LPF 10/31/16 03:15 Urine Ascorbic Acid 40 (NEGATIVE) H 10/31/16 03:15 Influenza A (Rapid) NEGATIVE (NEGATIVE) 10/30/16 21:43 Influenza B (Rapid) NEGATIVE (NEGATIVE) 10/30/16 21:43 10/31/16 17:25 Urine Culture - Final Clean Catch Midstream NO GROWTH 2 DAYS 10/31/16 03:15 Urine Culture - Final Catheterized Urine Escherichia Coli 10/30/16 21:20 Blood Culture - Preliminary Blood NO GROWTH AFTER 72 HOURS 10/30/16 20:00 Blood Culture - Preliminary Blood NO GROWTH AFTER 72 HOURS Impressions: Chest X-Ray 10/30/16 17:06 IMPRESSION: NEW SUBTLE AIRSPACE OPACITIES WITHIN THE RIGHT LOWER LOBE AND LEFT UPPER LOBE MAY REPRESENT DEVELOPING PNEUMONIA. RECOMMEND FOLLOWUP RADIOGRAPHS 4 TO 6 WEEKS TO ENSURE RESOLUTION. Qualifiers PATEINT BEING DISCHARGED WITH ANY OF THE FOLLOWING DIAGNOSIS?: No Plan Discharge Plan: The patient is a follow with primary care provider within one week for hospital follow-up of pneumonia. The patient will benefit repeat chest x-ray in 4-6 weeks. Time Spent: Less than 30 Minutes
== END 2016-11-02 11:33 | disposition home health service (06) | DRG 193 ==
LOC: ER 16:28 → EH 22:00 → UNDOADMIN 22:00 → EH 10-31 00:39 → 3N 10-31 04:10
PROVIDERS: ADMIT Family Medicine; ATTEND Family Medicine
DX: J18.9 Pneumonia, unspecified organism (principal); J96.21 Acute and chronic respiratory failure with hypoxia; J96.22 Acute and chronic respiratory failure with hypercapnia; E87.0 Hyperosmolality and hypernatremia; N39.0 Urinary tract infection, site not specified; Z68.41 Body mass index [BMI] 40.0-44.9, adult; I11.0 Hypertensive heart disease with heart failure; I50.9 Heart failure, unspecified; E66.01 Morbid (severe) obesity due to excess calories; E03.9 Hypothyroidism, unspecified; K21.9 Gastro-esophageal reflux disease without esophagitis; G47.30 Sleep apnea, unspecified; M19.90 Unspecified osteoarthritis, unspecified site; Z90.49 Acquired absence of other specified parts of digestive tract; Z85.3 Personal history of malignant neoplasm of breast; Z90.12 Acquired absence of left breast and nipple; Z79.891 Long term (current) use of opiate analgesic; Z91.19 Patient's noncompliance with other medical treatment and regimen; Z88.0 Allergy status to penicillin; Z88.2 Allergy status to sulfonamides; Z88.8 Allergy status to other drugs, medicaments and biological substances
CPT/HCPCS: 36415; 71010; 80053; 81001; 82550; 82553; 82803; 82962; 83690; 83735; 84439; 84443; 84484; 85025; 85610; 87040; 87086; 87088; 87186; 87804; 93005; 93010; 94660; 94799; 99291; J0456; J1580; J1650; J1956; J2930; J3490; J7060; J7512; J7620

== ENCOUNTER 2017-09-27 10:18 | Emergency (ER) | payer OTHER, MEDICARE ==
--- NOTE | 2017-09-27 10:50 | ER Document Report ---
ED Medical Screen (RME) - General Mode of Arrival: Ambulatory Information source: Patient TRAVEL OUTSIDE OF THE [place] IN LAST 30 DAYS: No <RADHA WOLF - Last Filed: 09/27/17 11:04> <LIBBY CARDONA - Last Filed: 09/27/17 13:02> - General Chief Complaint: Swelling of Lower Extremity Stated Complaint: RIGHT LEG SWELLING Time Seen by Provider: 09/27/17 10:37 Notes: Patient is a 77 year old female with a history of CHF, Arthritis, Gout and COPD presents to the emergency department complaining of right leg swelling onset 2- 3 weeks ago. Patient states the swelling worsened this morning. Patient denies fevers or a history of blood clots. Our mucous I have greeted and performed a rapid initial assessment of this patient. A comprehensive ED assessment and evaluation of the patient, analysis of test results and completion of the medical decision making process will be conducted by additional ED providers. (RADHA WOLF) Sent in from her primary care office due to concerns about possible DVT in the right leg. (LIBBY CARDONA) - Related Data Allergies/Adverse Reactions: lisinopril Allergy (Verified 09/27/17 10:21) omeprazole Allergy (Verified 09/27/17 10:21) Penicillins Allergy (Verified 09/27/17 10:21) rash Sulfa (Sulfonamide Antibiotics) Allergy (Verified 09/27/17 10:21) rash Past Medical History - Past Medical History Cardiac Medical History: Reports: Hx Congestive Heart Failure - Unknown if systolic and/or diastolic., Hx Hypertension Denies: Hx DVT, Hx Heart Attack, Hx Hypercholesterolemia, Hx Pulmonary Embolism Pulmonary Medical History: Reports: Hx Bronchitis, Hx COPD, Hx Pneumonia, Hx Sleep Apnea - noncompliant w/CPAP Neurological Medical History: Denies: Hx Seizures Endocrine Medical History: Reports: Hx Hypothyroidism. Denies: Hx Diabetes Mellitus Type 1, Hx Diabetes Mellitus Type 2, Hx Hyperthyroidism Malignancy Medical History: Reports: Hx Breast Cancer, Hx Skin Cancer GI Medical History: Reports: Hx Gastroesophageal Reflux Disease - History of; no symptoms for some time now.. Denies: Hx Cirrhosis, Hx Hepatitis Musculoskeltal Medical History: Reports Hx Arthritis Psychiatric Medical History: Reports: Hx Depression Infectious Medical History: Denies: Hx Hepatitis Past Surgical History: Reports: Hx Cholecystectomy, Hx Mastectomy - bilateral for left breast cancer., Other - Skin cancer excision. - Immunizations Immunizations up to date: No Hx Diphtheria, Pertussis, Tetanus Vaccination: No <RADHA WOLF - Last Filed: 09/27/17 11:04> Physical Exam <RADHA WOLF - Last Filed: 09/27/17 11:04> <LIBBY CARDONA - Last Filed: 09/27/17 13:02> - Vital signs Vitals: Temp Pulse Resp BP Pulse Ox 97.8 F 103 H 18 119/54 L 93 09/27/17 10:27 09/27/17 10:27 09/27/17 10:27 09/27/17 10:27 09/27/17 10:27 - Notes Notes: GENERAL: Alert, interacts well. No acute distress. LUNGS: Clear to auscultation bilaterally, no wheezes, rales, or rhonchi. No respiratory distress. HEART: Regular rate and rhythm. No murmurs, gallops, or rubs. ABDOMEN: Soft, non-tender. Non-distended. Bowel sounds present in all 4 quadrants. EXTREMITIES: Right leg significantly more swollen than left with 2+ pitting edema up to knee. Circumferential erythema on the lower right leg. Some varicosities bilaterally. (RADHA WOLF) Course - Laboratory Result Diagrams: 09/27/17 11:22 09/27/17 11:22 <LIBBY CARDONA - Last Filed: 09/27/17 13:02> - Vital Signs Vital signs: Temp Pulse Resp BP Pulse Ox 97.8 F 103 H 18 119/54 L 93 09/27/17 10:27 09/27/17 10:27 09/27/17 10:27 09/27/17 10:27 09/27/17 10:27 - Laboratory Laboratory results interpreted by me: 09/27/17 09/27/17 11:22 11:22 Hgb 11.2 L Hct 33.8 L RDW 15.4 H Eosinophils % 7.4 H Sodium 145.2 H Potassium 3.5 L Carbon Dioxide 36 H Alkaline Phosphatase 157 H Scribe Documentation - Scribe Written by Abdias:: Abdias Her, 09/27/2017 11:06 acting as scribe for :: Qamar <RADHA WOLF - Last Filed: 09/27/17 11:04>
[2017-09-27 11:31] LABS: ABSOLUTE BASOPHILS # (AUTO) 0.1 10^3/uL (0.0-0.2); ABSOLUTE EOSINOPHILS # (AUTO) 0.6 10^3/uL (0.0-0.6); ABSOLUTE LYMPHOCYTES (AUTO) 1.5 10^3/uL (0.5-4.7); ABSOLUTE MONOCYTES (AUTO) 0.7 10^3/uL (0.1-1.4); ABSOLUTE NEUT (AUTO) 5.7 10^3/uL (1.7-8.2); EOSINOPHILS % (AUTO) 7.4 % (0-6); HEMATOCRIT 33.8 % (36.0-47.0); HEMOGLOBIN 11.2 g/dL (12.0-15.5); HGB HCT DIFFERENCE -0.2; LYMPHOCYTES % (AUTO) 17.1 % (13-45); MEAN CORPUSCULAR HEMOGLOBIN 28.7 pg (27.0-33.4); MEAN CORPUSCULAR VOLUME 87 fl (80-97); MONOCYTES % (AUTO) 7.8 % (3-13); RED BLOOD COUNT 3.89 10^6/uL (3.72-5.28); RED CELL DISTRIBUTION WIDTH 15.4 % (11.5-14.0); SEGMENTED NEUTROPHILS % (AUTO) 66.7 % (42-78); WHITE BLOOD COUNT 8.6 10^3/uL (4.0-10.5)
[2017-09-27 11:42] LABS: PROTHROMBIN TIME 13.1 SEC (11.4-15.4)
[2017-09-27 12:06] LABS: ALANINE AMINOTRANSFERASE 21 U/L (9-52); ALBUMIN 3.5 g/dL (3.5-5.0); ALKALINE PHOSPHATASE 157 U/L (38-126); ANION GAP 8 (5-19); ASPARTATE AMINO TRANSFERASE 19 U/L (14-36); BILIRUBIN,DIRECT 0.2 mg/dL (0.0-0.4); BILIRUBIN,TOTAL 0.3 mg/dL (0.2-1.3); BLOOD UREA NITROGEN 15 mg/dL (7-20); CALCIUM 9.4 mg/dL (8.4-10.2); CARBON DIOXIDE 36 mmol/L (22-30); CHLORIDE 101 mmol/L (98-107); CREATININE RESULT 0.75 mg/dL (0.52-1.25); GLUCOSE 96 mg/dL (75-110); POTASSIUM 3.5 mmol/L (3.6-5.0); SODIUM 145.2 mmol/L (137-145); TOTAL PROTEIN 6.3 g/dL (6.3-8.2)
[2017-09-27] MEDS ORDERED: CLINDAMYCIN HCL 150 MG CAPSULE PO ONE (13:08)
--- NOTE | 2017-09-27 13:46 | ER Document Report ---
ED General - General Chief Complaint: Swelling of Lower Extremity Stated Complaint: RIGHT LEG SWELLING Time Seen by Provider: 09/27/17 10:37 Mode of Arrival: Ambulatory TRAVEL OUTSIDE OF THE [place] IN LAST 30 DAYS: No - HPI Patient complains to provider of: Right leg swelling Notes: Patient coming in for a 2-3 week history of right lower leg swelling. Patient states has a history also of chronic cellulitis. Patient states the leg has turned red and warm of the last few days as well. Denies any fevers or chills nausea or vomiting. Patient denies any recent antibiotics. Patient resting comfortably upon my evaluation with no other complaints denies shortness of breath chest pain abdominal pain trauma. - Related Data Allergies/Adverse Reactions: lisinopril Allergy (Verified 09/27/17 10:21) omeprazole Allergy (Verified 09/27/17 10:21) Penicillins Allergy (Verified 09/27/17 10:21) rash Sulfa (Sulfonamide Antibiotics) Allergy (Verified 09/27/17 10:21) rash Past Medical History - General Information source: Patient - Social History Smoking Status: Never Smoker Chew tobacco use (# tins/day): No Frequency of alcohol use: None Drug Abuse: None Family History: Reviewed & Not Pertinent Patient has suicidal ideation: No Patient has homicidal ideation: No - Past Medical History Cardiac Medical History: Reports: Hx Congestive Heart Failure - Unknown if systolic and/or diastolic., Hx Hypertension Denies: Hx DVT, Hx Heart Attack, Hx Hypercholesterolemia, Hx Pulmonary Embolism Pulmonary Medical History: Reports: Hx Bronchitis, Hx COPD, Hx Pneumonia, Hx Sleep Apnea - noncompliant w/CPAP Neurological Medical History: Denies: Hx Seizures Endocrine Medical History: Reports: Hx Hypothyroidism. Denies: Hx Diabetes Mellitus Type 1, Hx Diabetes Mellitus Type 2, Hx Hyperthyroidism Renal/ Medical History: Denies: Hx Peritoneal Dialysis Malignancy Medical History: Reports: Hx Breast Cancer, Hx Skin Cancer GI Medical History: Reports: Hx Gastroesophageal Reflux Disease - History of; no symptoms for some time now.. Denies: Hx Cirrhosis, Hx Hepatitis Musculoskeltal Medical History: Reports Hx Arthritis Psychiatric Medical History: Reports: Hx Depression Infectious Medical History: Denies: Hx Hepatitis Past Surgical History: Reports: Hx Cholecystectomy, Hx Mastectomy - bilateral for left breast cancer., Other - Skin cancer excision. - Immunizations Immunizations up to date: No Hx Diphtheria, Pertussis, Tetanus Vaccination: No Hx Pneumococcal Vaccination: 07/07/15 Review of Systems - Review of Systems Constitutional: No symptoms reported EENT: No symptoms reported Cardiovascular: No symptoms reported Respiratory: No symptoms reported Gastrointestinal: No symptoms reported Genitourinary: No symptoms reported Female Genitourinary: No symptoms reported Musculoskeletal: Leg swelling Skin: No symptoms reported Hematologic/Lymphatic: No symptoms reported Neurological/Psychological: No symptoms reported -: Yes All other systems reviewed and negative Physical Exam - Vital signs Vitals: Temp Pulse Resp BP Pulse Ox 97.8 F 103 H 18 119/54 L 93 09/27/17 10:27 09/27/17 10:27 09/27/17 10:27 09/27/17 10:27 09/27/17 10:27 Interpretation: Normal - General General appearance: Appears well, Alert - HEENT Head: Normocephalic, Atraumatic Eyes: Normal Pupils: PERRL - Respiratory Respiratory status: No respiratory distress Chest status: Nontender Breath sounds: Normal Chest palpation: Normal - Cardiovascular Rhythm: Regular Heart sounds: Normal auscultation Murmur: No - Abdominal Inspection: Normal Distension: No distension Bowel sounds: Normal Tenderness: Nontender Organomegaly: No organomegaly - Back Back: Normal, Nontender - Extremities General upper extremity: Normal inspection, Nontender, Normal color, Normal ROM , Normal temperature General lower extremity: Normal inspection, Nontender, Edema - Edema to bilateral lower extremities patient's right lower extremity is warm to touch greater than left. There is concern for overlying cellulitis to the right lower extremity, Normal color, Normal ROM, Normal temperature, Normal weight bearing. No: Manav's sign - Neurological Neuro grossly intact: Yes Cognition: Normal Orientation: AAOx4 [place] Coma Scale Eye Opening: Spontaneous [place] Coma Scale Verbal: Oriented [place] Coma Scale Motor: Obeys Commands [place] Coma Scale Total: 15 Speech: Normal Motor strength normal: LUE, RUE, LLE, RLE Sensory: Normal - Psychological Associated symptoms: Normal affect, Normal mood - Skin Skin Temperature: Warm Skin Moisture: Dry Skin Color: Normal Course - Re-evaluation Re-evalutation: 09/27/17 17:27 Concern for cellulitis will start patient on clindamycin. Doppler of the lower leg was negative. Patient will be discharged home. - Vital Signs Vital signs: Temp Pulse Resp BP Pulse Ox 97.9 F 95 20 131/51 H 95 09/27/17 14:01 09/27/17 14:01 09/27/17 14:01 09/27/17 14:01 09/27/17 14:01 - Laboratory Result Diagrams: 09/27/17 11:22 09/27/17 11:22 Laboratory results interpreted by me: 09/27/17 09/27/17 11:22 11:22 Hgb 11.2 L Hct 33.8 L RDW 15.4 H Eosinophils % 7.4 H Sodium 145.2 H Potassium 3.5 L Carbon Dioxide 36 H Alkaline Phosphatase 157 H Discharge - Discharge Clinical Impression: Cellulitis of right leg Condition: Good Disposition: HOME, SELF-CARE Instructions: Cellulitis (OM) Additional Instructions: Please follow-up with your primary care physician. Return to the ER if symptoms worsen. Take medication as prescribed. Your evaluation today does not show any signs of DVT. Your leg is concerning for possible early cellulitis. Please make sure that you are wearing her oxygen at home as directed. Her vital signs here do look stable. Return to ER symptoms worsen. Prescriptions: Clindamycin HCl [Cleocin 150 mg Capsule] 150 mg PO Q6 #40 capsule
[2017-09-27 14:12] VITALS: BP 131/51
--- NOTE | 2017-09-27 15:45 | XCELERA REPORT ---
[address] [address] Lower Extremity Venous Evaluation Name: DONALD FUNES Age: 77 yrs Gender: Female : 1940 Patient Status: Preadmit Patient Location: ER Study Date: 09/27/2017 11:19 AM Procedure: Color flow and duplex imaging of the veins of the right lower extremity as well as the left Common Femoral vein. Reason For Study: grossly swollen RLE, r/o DVT Ordering Physician: LIBBY CARDONA Performed By: Irma Curtis Right Sided Venous Evaluation Normal vessel filling wall to wall, compression and augmentation as well as Colour flow down to the infrageniculate veins. Left Sided Venous Evaluation The left common femoral vein is fully compressible. Spontaneous and phasic flow is present in the left common femoral vein. Interpretation Summary No duplex evidence of DVT or obstruction in the right lower extremity nor in the left Common Femoral vein. : LIBBY CARDONA > Donovan Garcia
== END 2017-09-27 14:12 | disposition home or self-care (01) ==
LOC: ER 10:18
DX: L03.115 Cellulitis of right lower limb (principal); R60.0 Localized edema; I10 Essential (primary) hypertension; J44.9 Chronic obstructive pulmonary disease, unspecified; Z85.3 Personal history of malignant neoplasm of breast; Z85.828 Personal history of other malignant neoplasm of skin; Z88.8 Allergy status to other drugs, medicaments and biological substances; Z88.0 Allergy status to penicillin; Z88.2 Allergy status to sulfonamides
CPT/HCPCS: 36415; 80053; 85025; 85610; 93971; 99284

== ENCOUNTER 2017-12-09 13:27 | Emergency (ER) | payer OTHER, MEDICARE, MEDICAID ==
--- NOTE | 2017-12-09 16:45 | RADIOLOGY REPORT (SQ) ---
EXAM DESCRIPTION: CT HEAD WITHOUT COMPLETED DATE/TIME: 12/09/2017 4:29 pm REASON FOR STUDY: fall/pain COMPARISON: None. TECHNIQUE: Axial images acquired through the brain without intravenous contrast. Images reviewed wi th bone, brain and subdural windows. Images stored on PACS. All CT scanners at this facility use dose modulation, iterative reconstruction, and/or weight based d osing when appropriate to reduce radiation dose to as low as reasonably achievable (ALARA). [facility]: Dose Right [facility]: CareDose [facility]: Dose Right [facility]: Teradose 4D [facility]: [employer] RADIATION DOSE: CT Rad equipment meets quality standard of care and radiation dose reduction techniq ues were employed. CTDIvol: 64.6 mGy. DLP: 1034 mGy-cm. mGy. LIMITATIONS: None. FINDINGS: VENTRICLES: Normal size and contour. CEREBRUM: No masses. No hemorrhage. No midline shift. No evidence for acute infarction. Normal gra y/white matter differentiation. No areas of low density in the white matter. CEREBELLUM: No masses. No hemorrhage. No alteration of density. No evidence for acute infarction. EXTRAAXIAL SPACES: No fluid collections. No masses. ORBITS AND GLOBE: See results under facial CT scan CALVARIUM: No fracture. PARANASAL SINUSES: See results under facial CT scan SOFT TISSUES: No mass or hematoma. OTHER: No other significant finding. IMPRESSION: No significant intracranial posttraumatic changes are identified. Findings as noted abo ve EVIDENCE OF ACUTE STROKE: NO. COMMENT: Quality ID # 436: Final reports with documentation of one or more dose reduction techniques (e.g., Automated exposure control, adjustment of the mA and/or kV according to patient size, use of iterative reconstruction technique) TECHNICAL DOCUMENTATION: JOB ID: [id number] [employer]- All Rights Reserved Reading location - IP/workstation name: [email or web address]
--- NOTE | 2017-12-09 16:51 | RADIOLOGY REPORT (SQ) ---
EXAM DESCRIPTION: CT FACIAL AREA WITHOUT COMPLETED DATE/TIME: 12/09/2017 4:29 pm REASON FOR STUDY: fall/pain COMPARISON: None. TECHNIQUE: Noncontrasted images through the facial bones and orbits windowed for bone and soft tissu e. Additional coronal and sagittal reconstructed images reviewed. All images stored on PACS. All CT scanners at this facility use dose modulation, iterative reconstruction, and/or weight based d osing when appropriate to reduce radiation dose to as low as reasonably achievable (ALARA). [facility]: Dose Right [facility]: CareDose [facility]: Dose Right [facility]: Teradose 4D [facility]: [employer] RADIATION DOSE: CT Rad equipment meets quality standard of care and radiation dose reduction techniq ues were employed. CTDIvol: 30.4 mGy. DLP: 511 mGy-cm. mGy. LIMITATIONS: None. FINDINGS: FACIAL BONES: There is deviation of the nasal bones to the left with associated cortical i rregularity consistent with fractures. There is angulation of the nasal septum to the left with tarsha ical interruption consistent with a fracture. No other evidence for fracture is seen. ORBITS: Intact. No fracture. Symmetric intact globes and retroorbital soft tissues. PARANASAL SINUSES: Mucosal thickening is identified in both maxillary antra with prominent air-fluid levels left greater than right which could be related to sinus disease or trauma. Mucosal thickening is identified and a couple of the ethmoidal air cells. Mucosal thickening is identified in the sphe noid sinuses. SOFT TISSUES: No mass or edema. INFERIOR BRAIN: See results under brain CT scan OTHER: No other significant finding. IMPRESSION: There is deviation of the nasal bones to the left with associated cortical irregularity consistent with fractures. There is angulation of the nasal septum to the left with cortical interru ption consistent with a fracture. No other evidence for fracture is seen. Sinus disease as noted ab ove. Other findings as noted above TECHNICAL DOCUMENTATION: JOB ID: [id number] Quality ID # [id number]: Final reports with documentation of one or more dose reduction techniques (e.g., Au tomated exposure control, adjustment of the mA and/or kV according to patient size, use of iterative reconstruction technique) 2010 [employer]- All Rights Reserved Reading location - IP/workstation name: [email or web address]
[2017-12-09 17:46] VITALS: BP 122/57
--- NOTE | 2017-12-09 17:47 | ER Document Report ---
ED Fall - General Chief Complaint: Fall Injury Stated Complaint: FACE INJURY Time Seen by Provider: 12/09/17 15:46 Mode of Arrival: Ambulatory Information source: Patient Notes: Patient states approximately 2 days ago she fell in the bathroom. She states she tripped over a raised area on the floor. She denies being lightheaded or dizzy or any type of near syncope. She states it was a mechanical fall. She states that her face hit a solid structure on the way down. She states she had a lot of bleeding afterwards were cleared of blood clots out of the nose herself. She states she went to the [facility] today for checkup and they referred her to the emergency department. She denies any chest pain. No palpitations. No shortness of breath. No abdominal pain. No extremity pain. No loss of consciousness. She denies being on any type of blood thinners. She has some mild facial pain. It is worse when touched and better if left alone. The pain does radiate through both sides of her face. It is mild and throbbing. TRAVEL OUTSIDE OF THE [place] IN LAST 30 DAYS: No - Related data Allergies/Adverse Reactions: lisinopril Allergy (Verified 12/09/17 13:28) omeprazole Allergy (Verified 12/09/17 13:28) Penicillins Allergy (Verified 12/09/17 13:28) rash Sulfa (Sulfonamide Antibiotics) Allergy (Verified 12/09/17 13:28) rash Past Medical History - General Information source: Patient - Social History Smoking Status: Unknown if Ever Smoked Chew tobacco use (# tins/day): No Frequency of alcohol use: None Drug Abuse: None Family History: Reviewed & Not Pertinent Patient has suicidal ideation: No Patient has homicidal ideation: No - Past Medical History Cardiac Medical History: Reports: Hx Congestive Heart Failure - Unknown if systolic and/or diastolic., Hx Hypertension Denies: Hx DVT, Hx Heart Attack, Hx Hypercholesterolemia, Hx Pulmonary Embolism Pulmonary Medical History: Reports: Hx Bronchitis, Hx COPD, Hx Pneumonia, Hx Sleep Apnea - noncompliant w/CPAP Neurological Medical History: Denies: Hx Seizures Endocrine Medical History: Reports: Hx Hypothyroidism. Denies: Hx Diabetes Mellitus Type 1, Hx Diabetes Mellitus Type 2, Hx Hyperthyroidism Renal/ Medical History: Denies: Hx Peritoneal Dialysis Malignancy Medical History: Reports: Hx Breast Cancer, Hx Skin Cancer GI Medical History: Reports: Hx Gastroesophageal Reflux Disease - History of; no symptoms for some time now.. Denies: Hx Cirrhosis, Hx Hepatitis Musculoskeltal Medical History: Reports Hx Arthritis Psychiatric Medical History: Reports: Hx Depression Infectious Medical History: Denies: Hx Hepatitis Past Surgical History: Reports: Hx Cholecystectomy, Hx Mastectomy - bilateral for left breast cancer., Other - Skin cancer excision. - Immunizations Immunizations up to date: No Hx Diphtheria, Pertussis, Tetanus Vaccination: No Hx Pneumococcal Vaccination: 07/07/15 Review of Systems - Review of Systems Constitutional: denies: Chills, Fever EENT: denies: Blurred vision, Double vision Cardiovascular: denies: Chest pain, Palpitations Respiratory: denies: Cough, Short of breath -: Yes All other systems reviewed and negative Physical Exam - Vital signs Vitals: Temp Pulse Resp BP Pulse Ox 98.3 F 117 H 20 140/69 H 94 12/09/17 13:39 12/09/17 13:39 12/09/17 13:39 12/09/17 13:39 12/09/17 13:39 Interpretation: Normal - General General appearance: Appears well, Alert In distress: None - HEENT Head: Normocephalic, Ecchymosis, Other - Face has diffuse ecchymosis bilaterally. It is periorbital nasal and maxillary bilaterally. Eyes: Normal Pupils: PERRL Nasal: Ecchymosis, Swelling Mouth/Lips: Normal Mucous membranes: Moist Pharynx: Normal Neck: Normal, Other - C-spine is nontender. - Respiratory Respiratory status: No respiratory distress Chest status: Nontender Breath sounds: Normal Chest palpation: Normal - Cardiovascular Rhythm: Regular, Tachycardia Heart sounds: Normal auscultation Murmur: No - Abdominal Inspection: Normal Distension: No distension Bowel sounds: Normal Tenderness: Nontender Organomegaly: No organomegaly - Back Back: Normal, Nontender - Extremities General upper extremity: Normal inspection, Nontender, Normal color, Normal ROM , Normal temperature General lower extremity: Normal inspection, Nontender, Normal color, Normal ROM , Normal temperature, Normal weight bearing. No: Manav's sign - Neurological Neuro grossly intact: Yes Cognition: Normal Orientation: AAOx4 [place] Coma Scale Eye Opening: Spontaneous [place] Coma Scale Verbal: Oriented Zackary Coma Scale Motor: Obeys Commands [place] Coma Scale Total: 15 Speech: Normal Motor strength normal: LUE, RUE, LLE, RLE Sensory: Normal - Psychological Associated symptoms: Normal affect, Normal mood - Skin Skin Temperature: Warm Skin Moisture: Dry Skin Color: Normal Course - Vital Signs Vital signs: Temp Pulse Resp BP Pulse Ox 98.3 F 117 H 20 140/69 H 94 12/09/17 13:39 12/09/17 13:39 12/09/17 13:39 12/09/17 13:39 12/09/17 13:39 - Diagnostic Test Radiology reviewed: Image reviewed, Reports reviewed - Patient's head CT shows no evidence of acute intracranial pathology Facial CT shows a nasal fracture as well as a nasal septal fracture. Discharge - Discharge Clinical Impression: Nasal bones, closed fracture Qualifiers: Encounter type: initial encounter Qualified Code(s): S02.2XXA - Fracture of nasal bones, initial encounter for closed fracture Nasal septum fracture Qualifiers: Encounter type: initial encounter Fracture type: closed Qualified Code(s): S02.2XXA - Fracture of nasal bones, initial encounter for closed fracture Condition: Stable Disposition: HOME, SELF-CARE Instructions: Fracture of the Nose ([facility]), Injured Nose ([facility]) Additional Instructions: Please call Dr. Lemus as soon as possible to arrange follow-up Referrals: JASPREET LEMUS DO [ASSOCIATE] - Follow up tomorrow
--- NOTE | 2017-12-09 21:58 | EKG REPORT ---
SEVERITY:- ABNORMAL ECG - SINUS TACHYCARDIA ABNRM R PROG, CONSIDER ASMI OR LEAD PLACEMENT : Confirmed by: Sana Rick 09-Dec-2017 21:57:36
== END 2017-12-09 17:45 | disposition home or self-care (01) ==
LOC: ER 13:27
DX: S02.2XXA Fracture of nasal bones, initial encounter for closed fracture (principal); W01.198A Fall on same level from slipping, tripping and stumbling with subsequent striking against other object, initial encounter; R00.0 Tachycardia, unspecified; I10 Essential (primary) hypertension; J44.9 Chronic obstructive pulmonary disease, unspecified; Z88.8 Allergy status to other drugs, medicaments and biological substances; Z88.0 Allergy status to penicillin; Z88.2 Allergy status to sulfonamides; Z85.3 Personal history of malignant neoplasm of breast; Z85.828 Personal history of other malignant neoplasm of skin
CPT/HCPCS: 70450; 70486; 93005; 93010; 99284

== ENCOUNTER 2018-01-21 10:51 | Emergency (ER) | payer OTHER, MEDICARE, MEDICAID ==
--- NOTE | 2018-01-21 12:07 | RADIOLOGY REPORT (SQ) ---
EXAM DESCRIPTION: KNEE LEFT 4 VIEW COMPLETED DATE/TIME: 01/21/2018 11:43 am REASON FOR STUDY: fall, knee pain COMPARISON: None. NUMBER OF VIEWS: Four views. TECHNIQUE: AP, lateral, and both oblique radiographic images acquired of the left knee. LIMITATIONS: None. FINDINGS: MINERALIZATION: Osteopenic BONES: No acute fracture or dislocation. No worrisome bone lesions. Small osteophytes in the patell ofemoral, medial, and lateral compartments. JOINT: Small suprapatellar knee joint effusion. Moderate to marked medial compartment joint space na rrowing, mild patellofemoral and lateral compartment joint space narrowing. SOFT TISSUES: No soft tissue swelling. No radio-opaque foreign body. OTHER: No other significant finding. IMPRESSION: No acute fracture Small suprapatellar knee joint effusion Osteoarthritis most pronounced in the medial compartment TECHNICAL DOCUMENTATION: JOB ID: [id number] [employer]- All Rights Reserved Reading location - IP/workstation name: [email or web address]
--- NOTE | 2018-01-21 13:50 | ER Document Report ---
ED Extremity Problem, Lower - General Chief Complaint: Knee Pain Stated Complaint: FALL/LEFT LEG PAIN Time Seen by Provider: 01/21/18 11:07 Notes: Patient is a 78-year-old female who presents with 1 month of left knee pain after a fall. The pain is worse when she is walking using her walker. Patient now complaining of a few days of right calf pain and swelling. She denies numbness, tingling, open wounds, fevers, back pain, chest pain or shortness of breath. TRAVEL OUTSIDE OF THE [place] IN LAST 30 DAYS: No - Related Data Allergies/Adverse Reactions: lisinopril Allergy (Verified 12/09/17 13:28) omeprazole Allergy (Verified 12/09/17 13:28) Penicillins Allergy (Verified 12/09/17 13:28) rash Sulfa (Sulfonamide Antibiotics) Allergy (Verified 12/09/17 13:28) rash Past Medical History - General Information source: Patient - Social History Smoking Status: Never Smoker Chew tobacco use (# tins/day): No Frequency of alcohol use: None Drug Abuse: None Family History: Reviewed & Not Pertinent Patient has suicidal ideation: No Patient has homicidal ideation: No - Past Medical History Cardiac Medical History: Reports: Hx Congestive Heart Failure - Unknown if systolic and/or diastolic., Hx Hypertension Denies: Hx DVT, Hx Heart Attack, Hx Hypercholesterolemia, Hx Pulmonary Embolism Pulmonary Medical History: Reports: Hx Bronchitis, Hx COPD, Hx Pneumonia, Hx Sleep Apnea - noncompliant w/CPAP Neurological Medical History: Denies: Hx Seizures Endocrine Medical History: Reports: Hx Hypothyroidism. Denies: Hx Diabetes Mellitus Type 1, Hx Diabetes Mellitus Type 2, Hx Hyperthyroidism Renal/ Medical History: Denies: Hx Peritoneal Dialysis Malignancy Medical History: Reports: Hx Breast Cancer, Hx Skin Cancer GI Medical History: Reports: Hx Gastroesophageal Reflux Disease - History of; no symptoms for some time now.. Denies: Hx Cirrhosis, Hx Hepatitis Musculoskeltal Medical History: Reports Hx Arthritis Psychiatric Medical History: Reports: Hx Depression Infectious Medical History: Denies: Hx Hepatitis Past Surgical History: Reports: Hx Cholecystectomy, Hx Mastectomy - bilateral for left breast cancer., Other - Skin cancer excision. - Immunizations Immunizations up to date: No Hx Diphtheria, Pertussis, Tetanus Vaccination: No Hx Pneumococcal Vaccination: 07/07/15 Review of Systems - Review of Systems Notes: REVIEW OF SYSTEMS: CONSTITUTIONAL: -fevers, -chills EENT: -eye pain, -difficulty swallowing, -nasal congestion CARDIOVASCULAR: -chest pain, -syncope. RESPIRATORY: -cough, -SOB GASTROINTESTINAL: -abdominal pain, -nausea, -vomiting, -diarrhea GENITOURINARY: -dysuria, -hematuria MUSCULOSKELETAL: +left knee pain and calf swelling, -back pain, -neck pain SKIN: -rash or skin lesions. HEMATOLOGIC: -easy bruising or bleeding. LYMPHATIC: -swollen, enlarged glands. NEUROLOGICAL: -altered mental status or loss of consciousness, -headache, - neurologic symptoms PSYCHIATRIC: -anxiety, -depression. ALL OTHER SYSTEMS REVIEWED AND NEGATIVE. Physical Exam - Vital signs Vitals: Temp Pulse Resp BP Pulse Ox 97.9 F 107 H 22 H 134/65 H 94 01/21/18 10:56 01/21/18 10:56 01/21/18 10:56 01/21/18 10:56 01/21/18 10:56 - Notes Notes: PHYSICAL EXAMINATION: GENERAL: Well-appearing, well-nourished and in no acute distress. HEAD: Atraumatic, normocephalic. EYES: Pupils equal round and reactive to light, extraocular movements intact, sclera anicteric, conjunctiva are normal. ENT: nares patent, oropharynx clear without exudates. Moist mucous membranes. NECK: Normal range of motion, supple without lymphadenopathy LUNGS: Breath sounds clear to auscultation bilaterally and equal. No wheezes rales or rhonchi. HEART: Regular rate and rhythm without murmurs ABDOMEN: Soft, nontender, normoactive bowel sounds. No guarding, no rebound. No masses appreciated. EXTREMITIES: Swelling and ecchymosis over left medial knee. Mild swelling and tenderness of left calf. Normal range of motion. Strong distal pulses. No cyanosis. NEUROLOGICAL: Cranial nerves grossly intact. Normal speech, normal gait. Normal sensory and motor exams. PSYCH: Normal mood, normal affect. SKIN: Warm, Dry, normal turgor, no rashes or lesions noted. Course - Re-evaluation Re-evalutation: Patient appears well. She is able to ambulate using her walker. X-ray shows evidence of arthritis, but no acute fractures. Ultrasound of her left lower extremity does not show any evidence of a DVT. Instructed patient about ice packs, Tylenol and anti-inflammatories with follow-up at her primary care physician and orthopedics. - Vital Signs Vital signs: Temp Pulse Resp BP Pulse Ox 97.9 F 107 H 22 H 134/65 H 94 01/21/18 10:56 01/21/18 10:56 01/21/18 10:56 01/21/18 10:56 01/21/18 10:56 - Diagnostic Test Radiology reviewed: Image reviewed, Reports reviewed Radiology results interpreted by me: Left knee x-ray: OA, no fractures LLE US: No DVTs. Discharge - Discharge Clinical Impression: Calf swelling Contusion of left knee Qualifiers: Encounter type: initial encounter Qualified Code(s): S80.02XA - Contusion of left knee, initial encounter Condition: Stable Disposition: HOME, SELF-CARE Additional Instructions: Contusion Your injury has resulted in a contusion -- a crushing of the deep tissues. No injury to important structures was detected during the physician's exam. Contusions vary in the amount of pain they cause, and in the length of time required for healing. Typically, the area will become bruised, and will remain painful to touch for two or three weeks. However, most patients are back to working and playing within a few days. After the initial period of rest and cold-packs, your symptoms (together with the doctor's recommendations) will determine how rapidly you can get back to full activity. Usually this means "do what feels okay, but don't do things that hurt." If re-examination was recommended, it's important to follow up as instructed. Call the doctor or return any time if pain increases, if swelling becomes severe, if you develop numbness or weakness in an injured extremity, or if any other alarming symptoms occur. Forms: Elevated Blood Pressure Referrals: CARLOS GRUBBS MD [Primary Care Provider] - Follow up as needed
[2018-01-21 14:11] VITALS: BP 129/64
--- NOTE | 2018-01-22 08:04 | XCELERA REPORT ---
[address] [address] Lower Extremity Venous Evaluation Name: DONALD FUNES Age: 78 yrs Gender: Female : 1940 Patient Status: Emergency Patient Location: ER Study Date: 01/21/2018 01:40 PM Procedure: Color flow and duplex imaging of the veins of the left lower extremity as well as the right Common Femoral vein. Reason For Study: left leg swelling Ordering Physician: PATRICA HUANG Performed By: Sourav Ramirez Right Sided Venous Evaluation The right common femoral vein is fully compressible. Spontaneous and phasic flow is present in the right common femoral vein. Left Sided Venous Evaluation Normal vessel filling wall to wall, compression and augmentation as well as Colour flow down to the infrageniculate veins. Interpretation Summary No duplex evidence of DVT or obstruction in the left lower extremity nor in the right Common Femoral vein. : PATRICA HUANG > Donovan Garcia
== END 2018-01-21 14:15 | disposition home or self-care (01) ==
LOC: ER 10:51
DX: S80.02XA Contusion of left knee, initial encounter (principal); M25.562 Pain in left knee; M79.605 Pain in left leg; M79.89 Other specified soft tissue disorders; W19.XXXA Unspecified fall, initial encounter
CPT/HCPCS: 93971; 99284

== ENCOUNTER → 2019-10-20 | Outpatient (CLI) | payer OTHER ==
--- NOTE | 2019-10-20 17:28 | RADIOLOGY REPORT (SQ) ---
EXAM DESCRIPTION: CT FACIAL AREA WITHOUT COMPLETED DATE/TIME: 10/20/2019 1:40 pm REASON FOR STUDY: NOSE PAIN facial pain COMPARISON: CT facial bones 12/09/2017 TECHNIQUE: Noncontrasted images through the facial bones and orbits windowed for bone and soft tissu e. Additional coronal and sagittal reconstructed images reviewed. All images stored on PACS. All CT scanners at this facility use dose modulation, iterative reconstruction, and/or weight based d osing when appropriate to reduce radiation dose to as low as reasonably achievable (ALARA). [facility]: Dose Right [facility]: CareDose [facility]: Dose Right [facility]: Teradose 4D [facility]: [employer] RADIATION DOSE: 45 mGy. LIMITATIONS: None. FINDINGS: FACIAL BONES: No fracture or bone lesion. ORBITS: Intact. No fracture. Symmetric intact globes and retroorbital soft tissues. Post bilateral cataract surgery PARANASAL SINUSES: There is mucous membrane thickening and trace fluid in the bilateral posterior eth moid air cells, bilateral sphenoid sinuses, and the left axillary sinus from mild inflammatory change . Mastoid air cells, middle ear cavities are clear. Bilateral frontal sinuses, right maxillary sinu s clear. No nasal cavity polyps. SOFT TISSUES: No facial soft tissue swelling/edema. Stable mild rightward deviation anterior nasal s eptum. INFERIOR BRAIN: Limited view. No acute findings. OTHER: No other significant finding. IMPRESSION: Mild inflammatory changes in the paranasal sinuses. TECHNICAL DOCUMENTATION: JOB ID: [id number] Quality ID # [id number]: Final reports with documentation of one or more dose reduction techniques (e.g., Au tomated exposure control, adjustment of the mA and/or kV according to patient size, use of iterative reconstruction technique) 2010 [employer]- All Rights Reserved Reading location - IP/workstation name: [email or web address]
== END ==
LOC: RAD 12:40
PROVIDERS: ATTEND Physician Assistant
DX: Z01.89 Encounter for other specified special examinations (principal)
CPT/HCPCS: 70486